=== PATIENT | female | born 1980 | race Caucasian/White ===

== ENCOUNTER 2017-07-12 15:20 | Emergency (ER) ==
[2017-07-12 15:27] VITALS: BP 130/85; TEMP 98.6; BMI 36.0
[2017-07-12 15:51] LABS: BASOPHILS % (AUTO) 0.2 % (0.0-3.0); EOSINOPHILS # (AUTO) 0.4 K/ul (0.0-0.7); EOSINOPHILS % (AUTO) 3.1 % (0.0-7.0); HEMATOCRIT 38.8 % (37.0-47.0); HEMOGLOBIN 13.3 g/dl (12.0-16.0); IMMATURE GRANULOCYTE % (AUTO) 0.3 % (0.0-5.0); LYMPHOCYTES # (AUTO) 1.4 K/uL (0.60-3.4); LYMPHOCYTES % (AUTO) 10.6 (10.0-50.0); MEAN CORPUSCULAR HEMOGLOBIN 31.1 pg (27.0-31.0); MEAN CORPUSCULAR HGB CONC 34.3 (31.8-35.4); MEAN CORPUSCULAR VOLUME 90.7 fl (81.0-99.0); MONOCYTES % (AUTO) 7.5 (0-10); NEUTROPHILS # (AUTO) 10.3 K/ul (2.0-6.9); NEUTROPHILS % (AUTO) 78.3; PLATELET COUNT 276 10^3/uL (140-440); RED BLOOD COUNT 4.28 10^6/ul (4.20-5.40); WHITE BLOOD COUNT 13.11 K/ul (4.6-10.2)
--- NOTE | 2017-07-12 15:53 | ED.PDOC ---
General ED Provider: Dr. CHETAN MISHRA Chief Complaint: Abdominal Pain Stated Complaint: abdominal pain Time Seen by Physician: 15:20 Mode of Arrival: Walk-In Information Source: Patient Exam Limitations: No limitations Nursing and Triage Documentation Reviewed and Agree: Yes GI Complaint Exam - Abdominal Pain Complaint/Exam Onset: Gradual Duration: 3 month she worried about bowel obstruction Symptoms Are: Still present Timing: Intermittent Initial Severity: Moderate Current Severity: Mild Location of Pain: Diffuse Radiates To: Denies: Chest, Back, Flank, LLQ, RLQ, Inguinal Character: Reports: Aching Aggravating: Reports: None Alleviating: Reports: None Associated Signs and Symptoms: Denies: Diaphoresis, Fever, Cough, Chest pain, Dizziness, Back pain, Constipation, Blood in stool, Dysuria, Urinary frequency, Decreased urine output, Decreased appetite, Vaginal bleeding, Vaginal discharge , Nausea, Vomiting, Diarrhea, Sore throat, Decreased activity Related History: Reports: Similar episode AAA Risk Factors: Reports: None Cardiac Risk Factors: Reports: None Ectopic Risk Factors: Reports: None Ovarian Torsion Risk Factors: Reports: None Surgical Obstruction Risk Factors: Reports: None Related Surgical History: Reports: None Patient Rh Status: Unknown Abdominal Findings: Present: None Differential Diagnoses: Appendicitis, Bowel Obstruction, Constipation, Diverticulitis, Gastroenteritis, Hepatitis, Pancreatitis, Renal Colic Review of Systems - Review Of Systems Constitutional: Reports: No symptoms Eyes: Reports: No symptoms Ears, Nose, Mouth, Throat: Reports: No symptoms Respiratory: Reports: No symptoms Cardiac: Reports: No symptoms GI: Reports: Abdominal pain : Reports: No symptoms Musculoskeletal: Reports: No symptoms Skin: Reports: No symptoms Neurological: Reports: No symptoms Endocrine: Reports: No symptoms Hematologic/Lymphatic: Reports: No symptoms All Other Systems: Reviewed and Negative Past Medical History - Past Medical History Previously Healthy: Yes Endocrine: Reports: None Cardiovascular: Reports: None Respiratory: Reports: None Hematological: Reports: None Gastrointestinal: Reports: None Genitourinary: Reports: None Neuro/Psych: Reports: None Musculoskeletal: Reports: None Cancer: Reports: None Last Menstrual Period: april - Surgical History General Surgical History: Reports: None - Family History Family History: Reports: None - Social History Smoking Status: Current every day smoker, Light tobacco smoker Hx Substance Use: No Alcohol Screening: None Physical Exam - Physical Exam Appearance: Well-appearing, No pain distress, Well-nourished Eyes: TOMEKA, EOMI, Conjunctiva clear ENT: Ears normal, Nose normal, Oropharynx normal Respiratory: Airway patent, Breath sounds clear, Breath sounds equal, Respirations nonlabored Cardiovascular: RRR, Pulses normal, No rub, No murmur GI/: Soft, Nontender, No masses, Bowel sounds normal, No Organomegaly Musculoskeletal: Normal strength, ROM intact, No edema, No calf tenderness Skin: Warm, Dry, Normal color Neurological: Sensation intact, Motor intact, Reflexes intact, Cranial nerves intact, Alert, Oriented Psychiatric: Affect appropriate, Mood appropriate Interpretation - Radiology Interpretation Radiology Interpretation By: Radiologist Radiology Results: No acute changes Critical Care Note - Critical Care Note Total Time (mins): 0 Course - Course Hematology/Chemistry: 07/12/17 15:25 07/12/17 15:25 Orders, Labs, Meds: Lab Review 07/12/17 07/12/17 07/12/17 15:25 15:25 15:33 WBC 13.11 H RBC 4.28 Hgb 13.3 Hct 38.8 MCV 90.7 MCH 31.1 H MCHC 34.3 RDW Coeff of Aaron 13.6 Plt Count 276 Immature Gran % (Auto) 0.3 Neut % (Auto) 78.3 Lymph % (Auto) 10.6 [place] % (Auto) 7.5 Eos % (Auto) 3.1 Baso % (Auto) 0.2 Immature Gran # (Auto) 0.0 Neut # 10.3 H Lymph # 1.4 [place] # 1.0 Eos # 0.4 Baso # 0.0 Sodium 138 Potassium 3.4 L Chloride 107 Carbon Dioxide 23 Anion Gap 11.4 BUN 8 Creatinine 0.79 Estimated GFR (MDRD) 81.00 BUN/Creatinine Ratio 10.12 Glucose 129 H Calcium 8.6 Total Bilirubin 0.36 AST 13 L ALT 17 Alkaline Phosphatase 53 Total Protein 6.7 Albumin 3.2 L Globulin 3.5 Albumin/Globulin Ratio 0.91 Amylase 45 Lipase 22 Urine Color Dark Urine Clarity Cloudy Urine pH 5.0 Ur Specific [place] >=1.030 Urine Protein Negative Urine Glucose (UA) Negative Urine Ketones Trace Urine Blood 1+ Urine Nitrite Negative Urine Bilirubin Negative Urine Urobilinogen 0.2 Ur Leukocyte Esterase Negative Urine Microscopic RBC 2-5 Urine Microscopic WBC 0-2 Ur Squamous Epith Cells 5-10 Amorphous Sediment 2+ Urine Bacteria Trace Urine Mucus Trace Urine Test Influenza A (Rapid) Influenza B (Rapid) 07/12/17 07/12/17 15:33 16:03 WBC RBC Hgb Hct MCV MCH MCHC RDW Coeff of Aaron Plt Count Immature Gran % (Auto) Neut % (Auto) Lymph % (Auto) [place] % (Auto) Eos % (Auto) Baso % (Auto) Immature Gran # (Auto) Neut # Lymph # [place] # Eos # Baso # Sodium Potassium Chloride Carbon Dioxide Anion Gap BUN Creatinine Estimated GFR (MDRD) BUN/Creatinine Ratio Glucose Calcium Total Bilirubin AST ALT Alkaline Phosphatase Total Protein Albumin Globulin Albumin/Globulin Ratio Amylase Lipase Urine Color Urine Clarity Urine pH Ur Specific [place] Urine Protein Urine Glucose (UA) Urine Ketones Urine Blood Urine Nitrite Urine Bilirubin Urine Urobilinogen Ur Leukocyte Esterase Urine Microscopic RBC Urine Microscopic WBC Ur Squamous Epith Cells Amorphous Sediment Urine Bacteria Urine Mucus Urine Test Negative Influenza A (Rapid) Negative Influenza B (Rapid) Negative Orders Category Date Time Status AMYLASE Stat LAB 07/12/17 15:25 Completed CBC W/ AUTO DIFF Stat LAB 07/12/17 15:25 Completed COMPREHENSIVE METABOLIC PANEL Stat LAB 07/12/17 15:25 Completed LIPASE Stat LAB 07/12/17 15:25 Completed MOLECULAR GROUP A STREP Stat LAB 07/12/17 16:03 Results RAPID FLU A/B Stat LAB 07/12/17 16:03 Completed STREP SCREEN Stat LAB 07/12/17 16:03 Results URINALYSIS C & S IF INDICATED Stat LAB 07/12/17 15:33 Completed URINE Stat LAB 07/12/17 15:[address] ABDOMEN/PELVIS WO CONTRAST Stat RADS 07/12/17 15:37 Completed Vital Signs: Temp Pulse Resp BP Pulse Ox 07/12/17 15:20 98.6 F 102 H 20 130/85 98 Departure - Departure Time of Disposition: 17:17 (info given with nanci driver all copies given to the pt ) Disposition: HOME SELF-CARE Discharge Problem: Abdominal pain Instructions: Abdominal Pain (ED) Condition: Good Pt referred to PMD for follow-up: Yes Additional Instructions: Please call your Family Physician as soon as possible to schedule a follow-up appointment. Allergies/Adverse Reactions: Allergies butorphanol [From Stadol] Adverse Reaction (Verified 07/12/17 15:27) meperidine [From Demerol] Adverse Reaction (Verified 07/12/17 15:27) Home Medications: Ambulatory Orders 1 [No Reported Medications] 07/12/17 Disposition Discussed With: Patient
[2017-07-12 15:59] LABS: BILIRUBIN,URINE Negative (NEGATIVE); KETONES,URINE Trace (NEGATIVE); LEUKOCYTE ESTERASE ,URINE Negative (NEGATIVE); NITRITE,URINE Negative (NEGATIVE); PROTEIN,URINE Negative (NEGATIVE); URINE PREGNANCY INTERNAL QC INTERNAL QC VALID; URINE, BLOOD 1+ (NEGATIVE)
[2017-07-12 16:11] LABS: ALBUMIN 3.2 g/dL (3.4-5.0); ALBUMIN/GLOBULIN RATIO 0.91; ANION GAP 11.4; BILIRUBIN,TOTAL 0.36 mg/dL (0.00-1.20); BUN/CREATININE RATIO 10.12; CALCIUM 8.6 mg/dL (8.2-10.2); CREATININE 0.79 mg/dL (0.60-1.30); POTASSIUM 3.4 mmol/L (3.5-5.10); TOTAL PROTEIN 6.7 g/dL (6.4-8.2)
[2017-07-12 16:12] LABS: ADD URINE MICROSCOPIC YES
[2017-07-12 16:14] LABS: BACTERIA,URINE TRACE (NOT PRESENT)
[2017-07-12 16:25] LABS: FLU INTERNAL QC INTERNAL QC VALID; RAPID FLU A NEGATIVE (NEGATIVE); RAPID FLU B NEGATIVE (NEGATIVE)
--- NOTE | 2017-07-12 16:44 | CT ---
EXAM: CT ABDOMEN AND PELVIS HISTORY: Lower abdominal pain, vomiting, diarrhea TECHNIQUE: CT abdomen and pelvis without intravenous contrast. Images were reconstructed using 5 mm section thickness. Reformations were prepared. COMPARISON: None FINDINGS: Diagnostic limitations exist without including contrast enhanced images. No focal hepatic or splenic lesions. There is a moderate-sized gallstone within a nondilated gallbladder. Pancreas and right a drenal gland are normal. There is a fatty 3.3 cm left adrenal mass. Kidneys and ureters appear norm al. Normal abdominal aorta. Stomach is mildly distended with food product. An appendix, if present is not seen. Bowel gas pattern and general appearance is within normal limits. Prominent uterine size. There is a cystic mass wit hin the left adnexa measuring 5.2 cm. Urinary bladder is within normal limits. There is no ascites or inflammatory infiltration of the abdominal fat. No ventral abdominal wall hernia. Bones are within normal limits for age. Lung bases are clear and there is no pneumoperitoneum. IMPRESSION: 1. Stomach is mildly distended with food product, nonspecific although conceivably gastritis, ileus or gastroparesis could appear similar versus simply a postprandial state. Normal bowel gas pattern an d general appearance. 2. There is a 5.2 cm cystic mass in the left adnexa. This probably represents an ovarian cyst. The uterine size is prominent. Consider follow-up pelvic ultrasound. 3. There is a moderate sized gallstone within a nondistended gallbladder. No pericholecystic strand ing or ascites.
== END 2017-07-12 17:24 | disposition home or self-care (01) ==
LOC: ED 15:20
DX: R10.84 Generalized abdominal pain (principal); F17.210 Nicotine dependence, cigarettes, uncomplicated
CPT/HCPCS: 36415; 80053; 81001; 81025; 82150; 83690; 85025; 87651; 87804; 87880; 99283

== ENCOUNTER 2017-10-26 16:35 | Emergency (ER) ==
[2017-10-26 16:44] VITALS: BP 151/92; TEMP 99; BMI 37.5
[2017-10-26] MEDS ORDERED: TORADOL IM STA (17:36)
[2017-10-26] MEDS ORDERED: NORFLEX PO STA (17:36)
--- NOTE | 2017-10-26 17:36 | ED.PDOC ---
General ED Provider: Dr. MARITZA HARPER Chief Complaint: Back Pain Stated Complaint: Rt Lower back and Hip Pain. States Fell on ice yesterday and landed on her back and Rt side of hip. Has chronic low back pain and lower extremity neuropathy. Takes Neurontin. Move here from [place] and has just received her medical insurance card this week. Has not got her meds yet. Admits to urinary hesitancy but denies dysuria; started menses today Time Seen by Physician: 17:10 Mode of Arrival: Walk-In Information Source: Patient Primary Care Provider: TOM BIRD Nursing and Triage Documentation Reviewed and Agree: Yes Reviewed sepsis parameters & appropriate labs ordered?: Yes System Inflammatory Response Syndrome: Not Applicable Sepsis Protocol: For patient's 13 years and over: Temp is 96.8 and below OR 101 and greater Pulse >90 BPM Resp >20/minute Acutely Altered Mental Status Are patient's symptoms suggestive of a new infection, such as: -Pneumonia -Skin, Soft Tissue -Endocarditis -UTI -Bone, Joint Infection -Implantable Device -Acute Abdominal Infection -Wound Infection -Meningitis -Blood Stream Catheter Infection -Unknown Review of Systems - Review Of Systems Constitutional: Reports: No symptoms Eyes: Reports: No symptoms Ears, Nose, Mouth, Throat: Reports: No symptoms Respiratory: Reports: No symptoms Cardiac: Reports: No symptoms GI: Reports: No symptoms : Reports: Hematuria, Urgency, Other (on menses). Denies: Burning, Dysuria, Discharge, Frequency, Flank pain, Incontinence Musculoskeletal: Reports: Back pain, Joint pain Skin: Reports: No symptoms Neurological: Reports: No symptoms Endocrine: Reports: No symptoms Hematologic/Lymphatic: Reports: No symptoms All Other Systems: Reviewed and Negative Past Medical History - Past Medical History Previously Healthy: Yes Endocrine: Reports: None Cardiovascular: Reports: None Respiratory: Reports: None Hematological: Reports: None Gastrointestinal: Reports: None Genitourinary: Reports: None, UTI Neuro/Psych: Reports: None Musculoskeletal: Reports: None, Back Pain. Denies: Arthritis Cancer: Reports: None Last Menstrual Period: 10/11/17 - Surgical History General Surgical History: Reports: None - Family History Family History: Reports: None - Social History Smoking Status: Current every day smoker, Light tobacco smoker Hx Substance Use: No Alcohol Screening: None Physical Exam - Physical Exam Appearance: Obese Ill-appearing: None Pain Distress: None Eyes: TOMEKA, EOMI, Conjunctiva clear ENT: Ears normal, Nose normal, Oropharynx normal Neck: Supple Respiratory: Airway patent, Breath sounds clear Cardiovascular: RRR, Pulses normal, No rub, No murmur GI/: Soft, Nontender, No masses, Bowel sounds normal, No Organomegaly Musculoskeletal: ROM intact, No edema, No calf tenderness, Limited ROM ( Tenderness to palpation Rt LS/SI Region with Reduced forward flexion ) Neurological: Sensation intact, Motor intact, Reflexes intact, Cranial nerves intact, Alert, Oriented Psychiatric: Affect appropriate, Mood appropriate Re-Evaluation - Re-Evaluation Time of Re-Evaluation: 18:50 Status: Improved Vital Signs Stable: Yes Appearance: NAD Lungs: Clear Skin: Warm and Dry Neuro: Alert and Oriented X3 CV: RRR (Lab -elevated WBC/other lab normal) Critical Care Note - Critical Care Note Total Time (mins): 0 Course - Course Hematology/Chemistry: 10/26/17 17:50 10/26/17 17:50 Orders, Labs, Meds: Lab Review 10/26/17 10/26/17 10/26/17 17:50 17:50 18:40 WBC 16.23 H RBC 4.49 Hgb 14.1 Hct 40.7 MCV 90.6 MCH 31.4 H MCHC 34.6 RDW Coeff of Aaron 13.3 Plt Count 361 Immature Gran % (Auto) 0.4 Neut % (Auto) 74.8 Lymph % (Auto) 15.3 [place] % (Auto) 5.9 Eos % (Auto) 3.1 Baso % (Auto) 0.5 Immature Gran # (Auto) 0.1 Neut # 12.1 H Lymph # 2.5 [place] # 1.0 Eos # 0.5 Baso # 0.1 Sodium 138 Potassium 4.1 Chloride 103 Carbon Dioxide 28 Anion Gap 11.1 BUN 9 Creatinine 0.70 Estimated GFR (MDRD) 94.00 BUN/Creatinine Ratio 12.85 Glucose 101 Calcium 9.3 Total Bilirubin 0.2 AST 19 ALT 17 Alkaline Phosphatase 74 Total Protein 7.8 Albumin 4.4 Globulin 3.4 Albumin/Globulin Ratio 1.29 Urine Color Yellow Urine Clarity Clear Urine pH 5.0 Ur Specific [place] 1.025 Urine Protein Trace Urine Glucose (UA) Negative Urine Ketones Trace Urine Blood 3+ Urine Nitrite Negative Urine Bilirubin 1+ Urine Urobilinogen 0.2 Ur Leukocyte Esterase Negative Urine Microscopic RBC 10-20 Urine Microscopic WBC 20-30 Ur Squamous Epith Cells 5-10 Urine Bacteria 1+ Orders Category Date Time Status CBC W/ AUTO DIFF Stat LAB 10/26/17 17:50 Completed CMP [COMPREHENSIVE METABOLIC PANEL] Stat LAB 10/26/17 17:50 Completed UA [URINALYSIS C & S IF INDICATED] Stat LAB 10/26/17 18:40 Completed URINE CULTURE Stat LAB 10/26/17 18:40 Received Ketorolac Tromethamine [Toradol] MEDS 10/26/17 17:36 Discontinued 30 mg IM ONCE STA Orphenadrine Citrate [Norflex] MEDS 10/26/17 17:36 Discontinued 100 mg PO ONCE STA CT LUMBAR SPINE W/O CONTRAST Stat RADS 10/26/17 17:[address] PELVIS W/O CONTRAST Stat RADS 10/26/17 17:37 Completed Medications Discontinued Medications Generic Name Dose Route Start Last Admin Trade Name Freq PRN Reason Stop Dose Admin Ketorolac Tromethamine 30 mg 10/26/17 17:36 10/26/17 17:44 Toradol IM 10/26/17 17:37 30 mg ONCE STA Administration Orphenadrine Citrate 100 mg 10/26/17 17:36 10/26/17 17:44 Norflex PO 10/26/17 17:37 100 mg ONCE STA Administration Vital Signs: Temp Pulse Resp BP Pulse Ox 10/26/17 16:36 99.0 F 106 H 16 151/92 H 96 Departure - Departure Time of Disposition: 19:30 Disposition: HOME SELF-CARE Discharge Problem: Low back strain, Contusion of hip, right, Leukocytosis, Hypertension Instructions: Low Back Strain (ED), Hip Contusion (ED), Leukocytosis (ED), Hypertension (ED) Condition: Good Pt referred to PMD for follow-up: Yes (See new physician at [facility] next week as planned) IPMP verified?: No Additional Instructions: Explained to patient results of testing. Monitor BP as outpatient Take meds as directed for pain Follow up with clinic in 3 -4 days for med refills and further eval Follow up ER as needed for worsening or other acute symptoms Allergies/Adverse Reactions: Allergies butorphanol [From Stadol] Adverse Reaction (Verified 10/26/17 16:39) meperidine [From Demerol] Adverse Reaction (Verified 10/26/17 16:39) Home Medications: Ambulatory Orders Diclofenac Sodium 50 mg PO 1-2XD #20 tablet. 10/26/17 Gabapentin 300 mg PO TID #30 tablet 10/26/17 Tizanidine HCl [Zanaflex] 4 mg PO TID PRN #20 capsule 10/26/17
--- NOTE | 2017-10-26 18:34 | CT ---
EXAM: CT of the lumbar spine without contrast. HISTORY: Fall. PROCEDURE: Contiguous axial CT images of the lumbar spine without contrast with coronal and sagittal reformats. FINDINGS: There is normal alignment of the lumbar vertebral bodies and facets. The vertebral body heights and intervertebral disc spaces are maintained. No paravertebral soft tissue abnormalities. Impression: Negative lumbar spine.
--- NOTE | 2017-10-26 18:36 | CT ---
EXAM: CT bony pelvis without contrast. HISTORY: Fall on ice. TECHNIQUE: Multi-slice transaxial helical CT. Coronal and sagital reformations were performed. COMPARISON: 07/12/2017. FINDINGS: No evidence of acute displaced fracture or dislocation. Bilateral hip joint spaces appear preserved. The pubic symphysis and the bilateral sacroiliac joints appear maintained. Visualized intrapelvic structures appear unremarkable. No evidence of fluid or hemorrhage layering within the pelvis. No e vidence of subcutaneous swelling or contusion is seen. IMPRESSION: No acute osseous abnormality of the bony pelvis.
== END 2017-10-26 19:41 | disposition home or self-care (01) ==
LOC: ED 16:35
DX: S39.012A Strain of muscle, fascia and tendon of lower back, initial encounter (principal); S70.01XA Contusion of right hip, initial encounter; D72.829 Elevated white blood cell count, unspecified; I10 Essential (primary) hypertension; W00.0XXA Fall on same level due to ice and snow, initial encounter; F17.210 Nicotine dependence, cigarettes, uncomplicated
CPT/HCPCS: 36415; 80053; 81001; 85025; 87086; 96372; 99283